=== PATIENT | female | born 1960 | race Caucasian/White ===

== ENCOUNTER 2017-01-29 11:28 | Inpatient (IN) | payer BC ==
--- NOTE | ~2017-01-29 | HP ---
History And Physical [facility] [address] [place]. [address] NAME: BENNY MARQUIS : 56 STATUS : ADM Toya PAT#: [id number] AGE: 56 ADM/REG DATE : 01/29/17 MR#: [id number] REPORT SERV DATE: 01/29/17 DICTATED BY: TUAN HINKLE DATE: 01/29/17 REPORT STATUS : Draft TRANSCRIBED BY: SHRUTHI DATE: 01/29/17 DATE OF ADMISSION: 01/29/2017 CHIEF COMPLAINT: Dysarthria and headache. HISTORY OF PRESENT ILLNESS: The patient is a very pleasant 56-year-old white female. She states she is supposed to have a colonoscopy on Friday. She takes Eliquis for atrial fibrillation. She stopped it on Friday. Over the last 5 days, she has had a headache in the back of her head, located in the right occipital area. She states today she had about a 30- minute episode of dysarthria. She states it resolved spontaneously. She did not have any weak extremities. She did not have any sensory loss. She states the headache is a mild dull ache. She does not have any associated photophobia or nausea. She had a previous stroke she reports back in the "1999s" but she cannot recall the exact year. I see she had a MRI in 2000 which was actually negative for stroke. At that time, she saw Dr. Olivarez, I question if she could have had a TIA, I am not sure. ALLERGIES: PENICILLIN AND BETADINE. PAST MEDICAL HISTORY: 1. Atrial fibrillation, on chronic Eliquis. 2. Hypertension. 3. Diabetes mellitus. 4. CML. 5. Hypothyroidism. 6. Previous MRSA infection of the skin. 7. Pacemaker placement. 8. Remote TIA versus CVA in 2000. 9. Obesity. PAST SURGICAL HISTORY: She has had a right hand irrigation and debridement for an abscess, a right knee operation, and thyroidectomy. SOCIAL HISTORY: She smokes one and a half packs per day. Does not use alcohol. She has 2 children. She is . She lives in [place]. FAMILY HISTORY: Positive for glioblastoma in her father and her grandmother had a stroke. HOME MEDICATIONS: Reviewed and attached. REVIEW OF SYSTEMS: Full 10-point review of systems obtained with pertinent positives mentioned in the HPI. PHYSICAL EXAMINATION: VITAL SIGNS: Blood pressure 161/72, sats 97%, pulse 62, respiratory rate 16, and temperature is 97.7. GENERAL: Morbidly obese white female. History And Physical [address] [place]. [address] NAME: BENNY MARQUIS : 56 STATUS : ADM Toya PAT#: [id number] AGE: 56 ADM/REG DATE : 01/29/17 MR#: [id number] REPORT SERV DATE: 01/29/17 DICTATED BY: TUAN HINKLE DATE: 01/29/17 REPORT STATUS : Draft TRANSCRIBED BY: SHRUTHI DATE: 01/29/17 HEENT: Poor dentition. Pupils are equal, round, and reactive to light and accommodation. Throat is clear. NECK: Supple. HEART: Regular rate and rhythm. LUNGS: Grossly clear. Diminished at the bases. ABDOMEN: Soft, nontender, and nondistended. EXTREMITIES: Warm and dry. SKIN: Intact without obvious rash or lesion. NEUROLOGIC: She is alert. She is oriented to person, place, and time. Speech is intact. Cranial nerves II through XII intact. She has symmetrical strength and tone in all four extremities. LAB AND X-RAY STUDIES: Head CT is negative. Chemistry panel is essentially normal. Troponin is negative. Magnesium is normal. CBC is normal. Coags are normal. EKG shows a paced rhythm. ASSESSMENT/PLAN: 1. TIA versus CVA. The patient cannot have MRI imaging due to the fact she has a pacer. I am going to do a carotid ultrasound as well as an echo with bubble. We will place her on tele. We will add aspirin. I did not want to start Eliquis in case she is having an acute stroke today. We will have Neurology see her in consultation. We will defer to them whether they want to do additional imaging in the form of CT or CT with contrast tomorrow morning. We will have case management see her. I do not think she needs speech therapy at this time or physical therapy. 2. CML, stable chronic. 3. Type 2 diabetes. Add level 1 sliding scale. Hold metformin in case she has a contrasted scan tomorrow. 4. History of hypothyroidism. 5. History of atrial fibrillation, on chronic Eliquis, currently paced, holding Eliquis as she has already had it on hold for few days and she may have had an acute TIA or stroke. I do not want to start anticoagulation in the face of this. We would like to defer to Neurology regarding their recommendations. 6. History of pacer. 7. Obesity, needs weight loss. 8. Tobacco abuse. Desperately needs cessation. 9. Disposition pending above. 10.Deep venous thrombosis prophylaxis with subcutaneous Lovenox. VERN/SHRUTHI Tuan Hinkle M.D. / [id number] History And Physical [address] [address] NAME: BENNY MARQUIS : 56 STATUS : ADM Toya PAT#: [id number] AGE: 56 ADM/REG DATE : 01/29/17 MR#: [id number] REPORT SERV DATE: 01/29/17 DICTATED BY: TUAN HINKLE DATE: 01/29/17 REPORT STATUS : Draft TRANSCRIBED BY: SHRUTHI DATE: 01/29/17 CC: Adrianna Copeland MD
--- NOTE | ~2017-01-29 | CN ---
Consultation Report [facility] [address] [place]. [address] NAME: BENNY MARQUIS : 56 STATUS : ADM Toya PAT#: [id number] AGE: 56 ADM/REG DATE : 01/29/17 MR#: [id number] REPORT SERV DATE: 01/30/17 DICTATED BY: CHERYL FARIAS DATE: 01/30/17 REPORT STATUS : Draft TRANSCRIBED BY: MODMicah DATE: 01/30/17 NEUROLOGICAL CONSULTATION-EVALUATION DATE OF CONSULTATION: 01/30/2017 REASON FOR EVALUATION: Possible TIA versus CVA. HISTORY OF PRESENT ILLNESS: This is a 56-year-old female with known history of diabetes mellitus, hypertension, morbid obesity, tobacco abuse, history of obstructive sleep apnea, noncompliant with CPAP, who presented to the emergency room with complaints of difficulty with her speech, which occurred upon awakening yesterday. The patient stated that she was having difficulty with speaking, she was not very clear about description of her symptoms. She stated she was feeling "slow." The patient has history of obstructive sleep apnea, however, has been noncompliant with her CPAP. She feels that her mask has been leaking, and therefore she has not been using it. The patient has history of previous cerebrovascular accident. She is not quite sure whether it was 1999 or 2004. She had followed with Dr. Olivarez - Neurology at that time. The patient has history of pacemaker placement approximately ten years ago with recent revised replacement. The patient has been on Eliquis for atrial fibrillation, which has been stopped in the past five days in preparation for colonoscopy the patient is scheduled to have tomorrow. The patient stated for the past five days, she has been experiencing headache in the back of her head. She denied nausea, difficulty with her speech, chewing, or swallowing. Denied weakness or numbness involving her face or extremities and to the event described by her prior to admission. The patient smokes one and half to two packs per day and stated that she has been encouraged by all her physicians to stop; however, has not been determined to do so until now. The patient has history of CML and has been on chemotherapy. The colonoscopy was scheduled by the patient's oncologist. The patient denied hematochezia, denied change in bowel habits, denied weakness or weight loss recently. The patient has been stable from her CML. PAST MEDICAL HISTORY: As mentioned above, history of hypertension, diabetes mellitus, atrial fibrillation, on Eliquis, history of pacemaker placement, hypothyroidism, CML, previous MRSA infection of the skin, not clear whether the patient had a CVA versus TIA in 1999 versus 2004. The patient has not been on any medications, aspirin or other medications prior to diagnosis of atrial fibrillation; and initiation of Eliquis therapy. PAST SURGICAL HISTORY: Knee surgery on the right, thyroidectomy. SOCIAL HISTORY: Smokes one and half to two packs per day. Denied use of alcohol. She is . FAMILY HISTORY: Significant history of massive stroke in patient's grandmother in her 80s. HOME MEDICATIONS: Include levothyroxine 125 mcg per day, lisinopril 20 mg per day, amlodipine 5 mg b.i.d., apixaban 5 mg b.i.d., however, not taken in the last six days, Consultation Report [address] [address] NAME: BENNY MARQUIS : 56 STATUS : ADM Toya PAT#: [id number] AGE: 56 ADM/REG DATE : 01/29/17 MR#: [id number] REPORT SERV DATE: 01/30/17 DICTATED BY: CHERYL FARIAS DATE: 01/30/17 REPORT STATUS : Draft TRANSCRIBED BY: SHRUTHI DATE: 01/30/17 Imodium on p.r.n. basis, meloxicam 15 mg every morning, metformin 1000 mg p.o. b.i.d., metoprolol 25 mg b.i.d., Tasigna (nilotinib) 150 mg capsule, oxybutynin 5 mg p.o. daily, Zoloft 50 mg p.o. daily, simvastatin 40 mg p.o. daily, tramadol 50 mg b.i.d. p.r.n. for pain. ALLERGIES: TO SOAP FROM BETADINE, IODINE ALLERGY, VENOM AND WASP BEE-STING, SIGNIFICANT REACTION. PHYSICAL EXAMINATION: GENERAL: The patient was alert, cooperative, did not appear in acute distress. Obese. VITAL SIGNS: Her weight was 127 kg. The patient is approximately 5 feet 2 inches, blood pressure 145/75, pulse was 64, respirations 16, temperature was 97.6. HEAD AND NECK: Showed head to be normocephalic. There was no evidence of trauma. Auscultation of the neck showed no evidence of bruits. EYES: Sclerae were not icteric. Conjunctivae were pink. ENT: Very poor dentition, multiple dental caries. ENT exam showed extremely small airway, Mallampati class 4. Tongue was moderately enlarged, but borderline normal. NECK: Supple. There was no Kernig or Brudzinski. Cervical range of motion was not significantly impaired. CHEST: Symmetrical. LUNGS: Showed increased expiratory wheezing, decreased breath sounds. HEART: Regular S1, S2. No S3, S4, or gallops were noted. Status post pacemaker placement. ABDOMEN: Obese. EXTREMITIES: Showed no significant edema in the lower extremities. Peripheral pulses were intact. SKIN: Clear. The patient's room was saturated with tobacco smoke. The patient denied smoking, however, stated that the smell may be coming from her clothing. NEUROLOGICAL EXAMINATION: MENTAL STATUS EXAM: The patient was alert, oriented to self, time, and place. Her speech was fluent. There was no evidence of aphasia or dysarthria. Thought content and mood were appropriate and no evidence of memory deficits were noted on testing, and mood and affect as mentioned were appropriate. CRANIAL NERVE EXAMINATION 2 THROUGH 12: Visual poole to confrontation were intact. FUNDUSCOPIC EXAM: Showed no evidence of papilledema, hemorrhages, or exudates. Pupils were 3 mm, reacted to light and accommodation. Extraocular movements were full. There was no nystagmus. No limitation of upward or downward gaze was noted. FACIAL SENSATION: Muscles of mastication, muscles of facial expression showed no evidence of asymmetry or weakness, and lower cranial nerves were intact. MOTOR EXAM: Muscle bulk and tone was normal. Strength was 5/5 throughout. Deep tendon reflexes were 1/2 in the upper extremities and trace over 2 in lower extremities. SENSORY EXAM: Decreased to temperature and vibration distally in both lower extremities. CEREBELLAR EXAM: Texmif-nt-ilik and ejuv-fr-hdat, rapid alternating movements were normal. GAIT: The patient had no difficulty with ambulating. LABORATORY STUDIES: Sodium 141, potassium 4.1, chloride 105, BUN 14, creatinine 0.64, Consultation Report [address] [place]. [address] NAME: BENNY MARQUIS : 56 STATUS : ADM [facility]#: [id number] AGE: 56 ADM/REG DATE : 01/29/17 MR#: [id number] REPORT SERV DATE: 01/30/17 DICTATED BY: CHERYL FARIAS DATE: 01/30/17 REPORT STATUS : Draft TRANSCRIBED BY: SHRUTHI DATE: 01/30/17 glucose 126, calcium 8.7, magnesium 1.9. WBC count 7.7, hemoglobin 14.6, hematocrit 44.5, platelet count 255,000. PT/INR 1.0. The patient's CT scan of the head was reviewed and showed no evidence of acute changes. An old area of encephalomalacia was seen in the right frontotemporal region. Carotid ultrasound study showed right carotid artery to be normal, left carotid category 1 less than 50% luminal stenosis. Normal right vertebral antegrade subclavian velocity, 2 to 3 cm per second. Left carotid, there is straight mild benign- appearing atherosclerotic plaque. The left vertebral antegrade flow subclavian velocity was normal. IMPRESSION: Persistent headache, episodes of questionable slow speech described by the patient, may suggest presence of transient ischemic episode, however, it appears unlikely. The patient has been off Eliquis in the past six days with history of atrial fibrillation. This constitutes a risk of possible embolic stroke. The patient has multiple risk factors for recurrent stroke. These include [id number] diabetes mellitus, hypertension, morbid obesity, obstructive sleep apnea, not treated, and tobacco abuse up to two packs of cigarettes per day. The patient was advised to return to her primary physician and to restart her Eliquis. I discussed at length with the patient the importance of smoking cessation, improvement of lifestyle and diet to decrease her risk factors for stroke. An outpatient polysomnography study or CPAP retitration study is strongly recommended. The patient was advised to follow with Neurology with Dr. Olivarez. Thank you for allowing me to participate in this patient's care. ZACHERY/SHRUTHI Cheryl Farias MD / [id number] CC: Adrianna Copeland MD
--- NOTE | ~2017-01-29 | DS ---
Discharge Summary [facility] [address] [place]. [address] NAME: BENNY MARQUIS : 56 STATUS : DIS Toya PAT#: [id number] AGE: 56 ADM/REG DATE : 01/29/17 MR#: [id number] REPORT SERV DATE: 02/01/17 DICTATED BY: BOBBY KAY DATE: 01/31/17 REPORT STATUS : Draft TRANSCRIBED BY: MODL DATE: 01/31/17 ADMISSION DATE: 01/29/2017 DISCHARGE DATE: 01/31/2017 CONDITION ON DISCHARGE: Stable. DISPOSITION: Discharged to home. ADVICE ON DISCHARGE: 1. To is to follow up with PCP, Dr. Michelle, within the next one to two weeks and also follow up with oncologist, Dr. Conte as scheduled within the next few weeks. 2. The patient has also been advised to stop smoking and a prescription for nicotine patch 21 mg daily given #14 given to the patient. DIAGNOSES ON DISCHARGE: Include the followin. Transient ischemic attack resulting in dysarthria and headache, this has completely resolved. The headache is completely resolved. The dysarthria also has resolved so we are not sure if the patient had a transient ischemic attack as her imaging studies have come back normal as will be dictated below. 2. Other diagnoses that are chronic, stable and multiple comorbidities which the patient is at risk for include the following. a. Hypertension, which is fairly well controlled. b. Diabetes mellitus, which is fairly well controlled. c. 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 d. Chronic atrial fibrillation for which the patient is on Eliquis and also has a pacer placed in the past. e. History of Chronic myelogenous leukemia or chronic myeloid leukemia for which she follows up with Dr. Conte as an outpatient. f. Heavy tobacco use and poor self care. The patient has been advised extensively to stop tobacco, and she agrees to do that and requests a prescription for nicotine, which has been given to the patient. BRIEF HOSPITAL COURSE: The patient was admitted on 01/29/2017. She is a 56-year-old white female patient, who essentially came in with dysarthria and symptoms of generalized weakness and occipital headache. She was essentially admitted for TIA rule out CVA. Imaging that was obtained on this patient include a CT scan of the brain without contrast that showed an old white matter infarct in the right frontoparietal area, but no acute intracranial abnormality. A Neurology consult that was obtained by Dr. Farias, suggested that the patient definitely did not need an MRI or an MRA at this time or rather risk factor modification. The patient also had a bilateral carotid ultrasound that showed atherosclerotic changes in both carotid arteries, but no significant stenosis. Left carotid artery had a category 1 disease with less than 50% luminal stenosis. Discharge Summary [address] [address] NAME: BENNY MARQUIS : 56 STATUS : DIS Toya PAT#: [id number] AGE: 56 ADM/REG DATE : 01/29/17 MR#: [id number] REPORT SERV DATE: 02/01/17 DICTATED BY: BOBBY KAY DATE: 01/31/17 REPORT STATUS : Draft TRANSCRIBED BY: MODMicah DATE: 01/31/17 Blood work that she has had while in the hospital include a hemoglobin A1c that came back with 7 showing fairly controlled diabetes mellitus. Troponin I was normal. Lipid profile came back with HDL of 42, LDL of 107, and triglycerides of 161. The patient is already on simvastatin. I stressed compliance and importance of taking this every day for the patient. Her CBC shows completely normal count. Electrolyte profile shows completely normal count also. Chest x-ray that the patient had shows no acute cardiopulmonary abnormality and a pacemaker in place as mentioned above. The patient also had a urinalysis that showed no evidence of any significant infection. Hence, the patient is being discharged home in stable condition with the above advice, and I am sending her home on the following prescriptions. She will resume all her prescriptions that she takes at home essentially namely Norvasc 5 mg p.o. b.i.d., Eliquis 5 mg p.o. b.i.d., Mobic 15 mg once a day, flecainide 100 mg twice a day, Neurontin 600 mg p.o. at bedtime. Aspirin 81 mg has been added to her regimen. Levothyroxine 125 mcg once a day, lisinopril 20 mg p.o. twice a day, Singulair 10 mg once a day, metoprolol 25 mg p.o. b.i.d., Ditropan 5 mg p.o. b.i.d., Zoloft 50 mg once a day, simvastatin 40 mg once a day, metformin 1000 mg p.o. b.i.d., nilotinib or Tasigna 300 mg p.o. b.i.d., tramadol 100 mg p.o. b.i.d. p.r.n. for pain or headache, Imodium p.r.n. for diarrhea. I have spent about 40 minutes in coordinating discharge care of this patient including face- to-face encounter and summarizing this discharge. STEVIE/SHRUTHI Bobby Kay M.D. / [id number] CC: Adrianna Copeland MD
[2017-01-29 10:58] LABS: BASOPHILS 0.1 %; BASOPHILS ABSOLUTE 0.01 10/3/uL (0.0-0.16); EOSINOPHILS 1.1 %; EOSINOPHILS ABSOLUTE 0.08 10/3/uL (0.0-0.53); ER CBC TAT 0 Hrs 03 Mins; HEMATOCRIT 43.8 % (36.0-48.0); HEMOGLOBIN 14.6 g/dL (12.0-16.0); IMMATURE GRANULOCYTES 0.3 %; IMMATURE GRANULOCYTES ABSOLUTE 0.02 10/3/uL (0.0-0.11); LYMPHOCYTES 12.2 %; LYMPHOCYTES ABSOLUTE 0.92 10/3/uL (0.67-4.30); MEAN CORPUS HGB CONC 33.3 g/dL (32.0-36.0); MEAN CORPUSCULAR HEMOGLOB 28.7 pg (26.0-34.0); MEAN CORPUSCULAR VOLUME 86.2 fL (80-100); MEAN PLATELET VOLUME 10.2 fL (9.2-13.0); MONOCYTES 4.3 %; MONOCYTES ABSOLUTE 0.32 10/3/uL (0.21-1.20); NEUTROPHILS ABSOLUTE 6.17 10/3/uL (2.02-8.40); PLATELET COUNT 235 10/3/uL (150-400); RBC DISTRIBUTION WIDTH 15.1 % (12.0-16.0); RED CELL COUNT 5.08 10/6/uL (4.0-5.6); WHITE BLOOD CELLS 7.5 10/3/uL (4.5-10.5)
[2017-01-29 11:00] LABS: MANUAL DIFF NO %
[2017-01-29 11:05] LABS: INTERNATIONAL NORMAL RATI 1.1 UNITS (-); PARTIAL THROMBO TIME 30.3 SEC (22.5-37.2); PROTIME (NOT ORD) 13.8 SEC (12.0-14.5)
[2017-01-29 11:13] LABS: BUN (BLOOD UREA NITROGEN) 14 MG/DL (6-23); CALCIUM, SERUM 8.7 MG/DL (8.5-10.4); CHEST PAIN PROFILE TAT 0 Hrs 18 Mins; CHLORIDE, SERUM 105 MMOL/L (96-112); CO2 (CARBON DIOXIDE) 29 MMOL/L (24-34); CREATININE 0.64 MG/DL (0.55-1.02); GFR AFRICAN AMERICAN 114 ML/MIN (>=60); GFR NON AFRICAN AMERICAN 98 ML/MIN (>=60); GLUCOSE, SERUM 126 MG/DL (60-99); POTASSIUM, SERUM 4.1 MMOL/L (3.5-5.3); SODIUM, SERUM 141 MMOL/L (135-148); TROPONIN I <0.02 NG/ML (<0.05)
[~2017-01-29 11:28] MED LIST: ADDER10 PO; AMB5 PO; BACDS PO; BACTRONASA NAS; DEMA10T PO; DITRO5 PO; ELIQUIS 5 MG TAB5 MG PO; FLECAINIDE 100 MG PO; FORTAMET1000 MG PO; FORTAMET500 MG PO; JANUVIA100 MG PO; KLOR-CON 1010 MEQ PO; LEVOTHYROXIN125 MCG PO; LOP25 PO; MOBIC15 MG PO; NEUR600 PO; NORV5 PO; PHENADOZ12.5 MG PO; PLAVIX PO; PR25 PO; PRIN20 PO; SINGULAIR1 PO; TASIGNA150 MG PO; ULTRAM50 PO; XODOL1 TA2 PO; ZOCOR10 PO; ZOCOR40 PO; ZOL50 PO
[2017-01-29] MEDS ORDERED: LOP25 PO (11:51)
[2017-01-29] MEDS ORDERED: ELIQUIS 5 MG TAB5 MG PO (11:51)
[2017-01-29] MEDS ORDERED: NORV5 PO (11:54)
[2017-01-29] MEDS ORDERED: PRIN20 PO (11:54)
[2017-01-29] MEDS ORDERED: FLECAINIDE100 MG PO (11:54)
[2017-01-29] MEDS ORDERED: SYN125 PO (11:55)
[2017-01-29] MEDS ORDERED: MOBIC15 MG PO (11:55)
[2017-01-29] MEDS ORDERED: ZOCOR40 PO (11:55)
[2017-01-29] MEDS ORDERED: SINGULAIR1 PO (11:56)
[2017-01-29] MEDS ORDERED: TASIGNA150 MG PO (11:56)
[2017-01-29] MEDS ORDERED: ZOL50 PO (11:56)
[2017-01-29] MEDS ORDERED: DITRO5 PO (11:57)
[2017-01-29] MEDS ORDERED: NEUR600 PO (11:57)
[2017-01-29] MEDS ORDERED: GLUCOPHAGE1000 MG PO (11:57)
[2017-01-29] MEDS ORDERED: OTC EYE DROP OPH (11:58)
[2017-01-29] MEDS ORDERED: IMOD PO (11:58)
[2017-01-29] MEDS ORDERED: ULTRAM50 PO (11:58)
[2017-01-29] MEDS ORDERED: CALAMIN3 TOP (11:59)
[2017-01-29] MEDS ORDERED: HYDROCORTISONE TOP (11:59)
[2017-01-29 16:39] LABS: BASOPHILS 0.3 %; BASOPHILS ABSOLUTE 0.02 10/3/uL (0.0-0.16); EOSINOPHILS 1.3 %; HEMATOCRIT 44.5 % (36.0-48.0); HEMOGLOBIN 14.6 g/dL (12.0-16.0); IMMATURE GRANULOCYTES 0.3 %; IMMATURE GRANULOCYTES ABSOLUTE 0.02 10/3/uL (0.0-0.11); LYMPHOCYTES 13.8 %; LYMPHOCYTES ABSOLUTE 1.06 10/3/uL (0.67-4.30); MEAN CORPUS HGB CONC 32.8 g/dL (32.0-36.0); MEAN CORPUSCULAR HEMOGLOB 28.3 pg (26.0-34.0); MEAN CORPUSCULAR VOLUME 86.4 fL (80-100); MEAN PLATELET VOLUME 10.7 fL (9.2-13.0); MONOCYTES 5.7 %; MONOCYTES ABSOLUTE 0.44 10/3/uL (0.21-1.20); NEUTROPHILS 78.6 %; NEUTROPHILS ABSOLUTE 6.06 10/3/uL (2.02-8.40); PLATELET COUNT 255 10/3/uL (150-400); RBC DISTRIBUTION WIDTH 15.3 % (12.0-16.0); RED CELL COUNT 5.15 10/6/uL (4.0-5.6); WHITE BLOOD CELLS 7.7 10/3/uL (4.5-10.5)
[2017-01-29 16:43] LABS: MANUAL DIFF NO %
[2017-01-29 16:46] LABS: PARTIAL THROMBO TIME 30.2 SEC (22.5-37.2); PROTIME (NOT ORD) 13.5 SEC (12.0-14.5)
[2017-01-29 17:11] LABS: CHOL/HDL RATIO(NOT ORDER) 4.3 (0-5); CHOLESTEROL 181 MG/DL (< 200); HDL CHOLESTEROL 42 MG/DL (> 49); LDL CHOLESTEROL 107 MG/DL (< 130); NON-HDL CHOLESTEROL 139 MG/DL (< 160); TRIGLYCERIDE 161 MG/DL (< 150); TROPONIN I <0.02 NG/ML (<0.05)
[2017-01-29 20:06] LABS: ASCORBIC ACID (UR NOT ORDER) NEG (NEG); BILIRUBIN, URINE NEGATIVE (NEG); KETONE, URINE NEGATIVE (NEG); LEUKOCYTE ESTERASE(NOT OR SMALL (NEG); WBC (NOT ORDERED) (RFLEX) 2 (0-5)
[2017-01-31 06:00] LABS: BASOPHILS 0.3 %; BASOPHILS ABSOLUTE 0.02 10/3/uL (0.0-0.16); EOSINOPHILS 1.6 %; EOSINOPHILS ABSOLUTE 0.13 10/3/uL (0.0-0.53); HEMOGLOBIN 14.9 g/dL (12.0-16.0); IMMATURE GRANULOCYTES 0.3 %; IMMATURE GRANULOCYTES ABSOLUTE 0.02 10/3/uL (0.0-0.11); LYMPHOCYTES 12.4 %; LYMPHOCYTES ABSOLUTE 0.98 10/3/uL (0.67-4.30); MEAN CORPUS HGB CONC 32.4 g/dL (32.0-36.0); MEAN CORPUSCULAR HEMOGLOB 28.3 pg (26.0-34.0); MEAN CORPUSCULAR VOLUME 87.3 fL (80-100); MEAN PLATELET VOLUME 10.9 fL (9.2-13.0); MONOCYTES 6.4 %; MONOCYTES ABSOLUTE 0.51 10/3/uL (0.21-1.20); NEUTROPHILS ABSOLUTE 6.27 10/3/uL (2.02-8.40); PLATELET COUNT 259 10/3/uL (150-400); RBC DISTRIBUTION WIDTH 15.3 % (12.0-16.0); RED CELL COUNT 5.27 10/6/uL (4.0-5.6); WHITE BLOOD CELLS 7.9 10/3/uL (4.5-10.5)
[2017-01-31 06:01] LABS: MANUAL DIFF NO %
[2017-01-31 06:05] LABS: BUN (BLOOD UREA NITROGEN) 17 MG/DL (6-23); CALCIUM, SERUM 8.8 MG/DL (8.5-10.4); CHLORIDE, SERUM 100 MMOL/L (96-112); CO2 (CARBON DIOXIDE) 31 MMOL/L (24-34); CREATININE 0.75 MG/DL (0.55-1.02); GFR AFRICAN AMERICAN 102 ML/MIN (>=60); GFR NON AFRICAN AMERICAN 88 ML/MIN (>=60); GLUCOSE, SERUM 193 MG/DL (60-99); POTASSIUM, SERUM 4.8 MMOL/L (3.5-5.3); SODIUM, SERUM 138 MMOL/L (135-148)
[2017-01-31] MEDS ORDERED: ASAB PO (14:07)
[2017-01-31] MEDS ORDERED: HABIT21 TOP (14:11)
== END 2017-01-31 15:50 | disposition home or self-care (01) | DRG 69 ==
LOC: ER 11:28 → 1SO 12:06
PROVIDERS: Emergency Medicine; Internal Medicine
DX: G45.9 Transient cerebral ischemic attack, unspecified (principal); C92.10 Chronic myeloid leukemia, BCR/ABL-positive, not having achieved remission; Z68.42 Body mass index [BMI] 45.0-49.9, adult; I48.2 Chronic atrial fibrillation; R47.1 Dysarthria and anarthria; I10 Essential (primary) hypertension; E11.9 Type 2 diabetes mellitus without complications; E89.0 Postprocedural hypothyroidism; E66.01 Morbid (severe) obesity due to excess calories; G47.33 Obstructive sleep apnea (adult) (pediatric); F17.210 Nicotine dependence, cigarettes, uncomplicated; Z91.19 Patient's noncompliance with other medical treatment and regimen; Z79.01 Long term (current) use of anticoagulants; Z79.84 Long term (current) use of oral hypoglycemic drugs; Z79.1 Long term (current) use of non-steroidal anti-inflammatories (NSAID); Z79.899 Other long term (current) drug therapy; Z86.73 Personal history of transient ischemic attack (TIA), and cerebral infarction without residual deficits; Z86.14 Personal history of Methicillin resistant Staphylococcus aureus infection; Z95.0 Presence of cardiac pacemaker; Z88.0 Allergy status to penicillin; Z91.030 Bee allergy status; Z91.048 Other nonmedicinal substance allergy status
CPT/HCPCS: 70450; 71020; 80048; 80061; 81001; 82962; 83036; 83735; 84484; 85025; 85610; 85730; 87086; 93005; 93306; 93880; 96372; 99285; A9270-GY; G0378